=== PATIENT | male | born 1985 | race Two or more races ===

== ENCOUNTER 2023-05-26 15:00 | Emergency (ER) | payer OTHER ==
[~2023-05-26] VITALS: Ht 175.3 cm; Wt 72.6 kg
[2023-05-26 15:08] VITALS: BP 114/72; TEMP 98.1; O2SAT 97
== END 2023-05-26 15:18 | disposition home or self-care (01) ==
LOC: ER 15:04
DX: S01.81XD Laceration without foreign body of other part of head, subsequent encounter (principal); X58.XXXD Exposure to other specified factors, subsequent encounter